=== PATIENT | female | born 1995 | race Caucasian/White ===

== ENCOUNTER 2021-03-15 21:56 | Emergency (ER) | payer OTHER ==
[~2021-03-15] VITALS: Ht 170.2 cm; Wt 95.3 kg
--- NOTE | 2021-03-15 22:30 | NUR ---
Patient presents to ED from home for Chest Pressure/Pain. Pain is now 2/10 and she is describing her symptoms more as a pressure located in the center of her chest directly above the sternum. Non-radiating. Hx of HTN (on lisinopril) + anxiety + depression. A&Ox4. Cooperative & pleasant. Able to make needs known. No neurological deficits. Chest pain as described in her cc. No palpitations - slightly tachycardic (105). BP 147/91. Saturations > 94% on room air. No SOB, no labored breathing. GI/: no apparent problems. slightly overweight.
--- NOTE | 2021-03-15 22:31 | NUR ---
Dr. Pino at bedside
[2021-03-15] MEDS ORDERED: ASPIRIN 81 MG TAB.CHEW PO ONE (22:45)
[2021-03-15] MEDS ORDERED: LORAZEPAM 0.5 MG TABLET PO ONE (22:45)
[2021-03-15] MEDS ORDERED: ASPIRIN 81 MG TAB.CHEW ONE (22:45)
[2021-03-15] MEDS ORDERED: LORAZEPAM 0.5 MG TABLET ONE (22:46)
[2021-03-15 22:48] LABS: BASOPHILS # (AUTO) 0.1 K/uL (0.0-8.0); BASOPHILS % (AUTO) 0.5 % (0.0-2.0); EOSINOPHILS # (AUTO) 0.1 K/uL (0.0-0.7); EOSINOPHILS % (AUTO) 0.8 % (0.0-7.0); HEMATOCRIT 43.3 % (31.2-41.9); HEMOGLOBIN 14.4 g/dL (10.9-14.3); LYMPHOCYTES # (AUTO) 3.4 K/uL (20.0-40.0); LYMPHOCYTES % (AUTO) 29.9 % (20.5-51.5); MEAN CORPUSCULAR HEMOGLOBIN 28.7 uug (24.7-32.8); MEAN CORPUSCULAR HGB CONC 33 g/dL (32.3-35.6); MEAN CORPUSCULAR VOLUME 86.4 fL (75.5-95.3); MONOCYTES # (AUTO) 0.8 K/uL (2.0-10.0); MONOCYTES % (AUTO) 7.3 % (0.0-11.0); NEUTROPHILS % (AUTO) 61.5 % (38.5-71.5); PLATELET COUNT (AUTO) 334 K/uL (179-408); RED BLOOD CELL COUNT(AUTO) 5.02 MIL/uL (3.63-4.92); WHITE BLOOD COUNT (AUTO) 11.4 K/uL (3.8-11.8)
[2021-03-15 23:00] LABS: POTASSIUM 4.8 mmol/L (3.5-5.1)
[2021-03-15 23:12] LABS: BILIRUBIN,DIRECT 0.1 mg/dL (0.0-0.2); BILIRUBIN,TOTAL 0.6 mg/dL (0.2-1.0); TOTAL PROTEIN, SERUM 7.4 g/dL (6.4-8.2)
--- NOTE | 2021-03-15 23:34 | NUR ---
Resting in bed. No acute distress. Verbalizes improvement in pain.
[2021-03-15] MEDS ORDERED: LORA-259 PO (23:37)
--- NOTE | 2021-03-15 23:45 | NUR ---
Patient discharged to home in stable condition. Written and verbal after care instructions given. Patient verbalizes understanding of instructions. Stressed follow up or return to ER for worsening s/s. Steady gait. VSS. All belongings with patient. Advised not to drive.
[2021-03-16 00:39] VITALS: BP 133/87
== END 2021-03-15 23:45 | disposition home or self-care (01) ==
LOC: ER 21:56
DX: R07.9 Chest pain, unspecified (principal); F41.9 Anxiety disorder, unspecified; R03.0 Elevated blood-pressure reading, without diagnosis of hypertension; J45.909 Unspecified asthma, uncomplicated; R00.0 Tachycardia, unspecified; F32.9 Major depressive disorder, single episode, unspecified; Z79.899 Other long term (current) drug therapy
CPT/HCPCS: 36415; 70030-TC; 71045; 85025; 93005; A4663